=== PATIENT | male | born 1970 | race African-American/Black ===

== ENCOUNTER 2025-06-12 18:52 | Inpatient (IN) | payer OTHER ==
[~2025-06-12] VITALS: Ht 172.7 cm; Wt 71.7 kg
[2025-06-12] MEDS: NITROGLYCERIN 50MG PREMIX 250 ML IV ONE (19:00)
[2025-06-12 19:04] VITALS: O2SAT 98
[2025-06-12 19:07] VITALS: RESP 18
[2025-06-12] MEDS: DEXAMETHASONE 10 MG/ML VIAL IV ONE (19:11)
[2025-06-12] MEDS: NITROGLYCERIN OINT 1GM/INCH UDPKT TD ONE (19:11)
[2025-06-12 19:22] LABS: BASOPHILS % 1.0 % (0.0-2.0); EOSINOPHILS % 1.7 % (0.0-5.0); HEMATOCRIT. 44.8 % (42.0-52.0); HEMOGLOBIN. 14.0 g/dL (14.0-18.0); LYMPHOCYTES % 53.7 % (20.0-50.0); MEAN PLATELET VOLUME 8.5 fl (7.4-10.4); MONOCYTES % 6.3 % (2.0-8.0); NEUTROPHILS % 37.3 % (40.0-76.0); PLATELET 237 x1000/uL (130-400); RED BLOOD CELL COUNT 5.13 mill/uL (4.7-6.1); RED CELL DISTRIBUTION WIDTH 19.2 % (11.6-14.6)
[2025-06-12 19:36] LABS: CREATININE 0.8 mg/dL (0.6-1.3); UREA NITROGEN BLOOD 12 mg/dL (9-23)
[2025-06-12 19:37] LABS: TROPONIN I HIGH SENSITIVITY 4 ng/L (3.0-53)
[2025-06-12] MEDS: IPRATROPIUM BROMIDE (0.02%) 0.5MG/2.5ML NEB HHN SCH (19:46)
[2025-06-12] MEDS: ALBUTEROL (0.083%) 2.5MG/3ML NEB HHN SCH (19:47)
[2025-06-12] MEDS: DIPHENHYDRAMINE 50MG/ML VIAL IV ONE (19:50)
[2025-06-12 19:52] VITALS: RESP 18
[2025-06-12] MEDS: KCL 10MEQ/50ML PREMIX 50 ML IV SCH (19:57)
[2025-06-12 20:21] LABS: BG BASE EXCESS -2.4 mmol/L (-2.0-3.0); BG CARBOXYHEMOGLOBIN 1.8 % (0.5-1.5); BG DEOXYHEMOGLOBIN 1.1 % (0.0-5.0); BG FRACTION INSPIRED OXYGEN 50; BG HCO3 ACT 23.3 mmol/L (21.0-28.0); BG METHEMOGLOBIN 0.3 % (0.5-1.5); BG OXYGEN SATURATION 98.9 % (94.0-98.0); BG OXYHEMOGLOBIN 96.8 % (94.0-98.0); BG PCO2 43.5 mmHg (35.0-48.0); BG PH 7.347 (7.350-7.450); BG PO2 140.2 mmHg (83.0-108.0); BG SAMPLE SITE RIGHT RADIAL; BG TOTAL HEMOGLOBIN 15.1 g/dL (13.5-17.5); BG VENT MODE MASK - BIPAP
[2025-06-12 22:03] LABS: TROPONIN I HIGH SENSITIVITY 12 ng/L (3.0-53)
[2025-06-13] MEDS ORDERED: ACETAMINOPHEN 325MG TABLET PO PRN ×2 (00:15)
[2025-06-13] MEDS ORDERED: ONDANSETRON HCL 4MG/2ML INJ IV PRN (00:15)
[2025-06-13] MEDS ORDERED: IPRATROPIUM/ALBUTEROL 0.5-3(2.5)MG/3ML NEB HHN PRN (00:15)
[2025-06-13 01:45] LABS: TROPONIN I HIGH SENSITIVITY 13 ng/L (3.0-53)
[2025-06-13 08:00] VITALS: BP 146/96; PULSE 65; RESP 11; TEMP 36.7; O2SAT 99
[2025-06-13] MEDS: ENOXAPARIN 40MG/0.4ML SYR SUBCUT SCH (09:09)
[2025-06-13 09:11] VITALS: BP 141/95; PULSE 60; RESP 14; TEMP 36.696; TEMP 36.6960
[2025-06-13 10:00] VITALS: BP 142/98; PULSE 69; RESP 12; O2SAT 98
[2025-06-13 11:12] LABS: BASOPHILS % 0.1 % (0.0-2.0); EOSINOPHILS % 0.0 % (0.0-5.0); HEMATOCRIT. 42.4 % (42.0-52.0); HEMOGLOBIN. 13.5 g/dL (14.0-18.0); LYMPHOCYTES % 9.1 % (20.0-50.0); MEAN PLATELET VOLUME 9.1 fl (7.4-10.4); MONOCYTES % 2.7 % (2.0-8.0); NEUTROPHILS % 88.1 % (40.0-76.0); PLATELET 223 x1000/uL (130-400); RED BLOOD CELL COUNT 4.92 mill/uL (4.7-6.1); RED CELL DISTRIBUTION WIDTH 19.0 % (11.6-14.6)
[2025-06-13 11:24] LABS: CREATININE 0.7 mg/dL (0.6-1.3)
[2025-06-13 11:25] LABS: UREA NITROGEN BLOOD 9 mg/dL (9-23)
[2025-06-13 11:27] LABS: PHOSPHORUS 3.5 mg/dL (2.5-4.9)
== END 2025-06-13 12:10 | disposition left against medical advice (07) | DRG 193 ==
LOC: ER 18:52 → 5EST 22:39 → EDBEDREQ 22:43 → EDBEDREQTM 22:43 → EDBEDREQSVC 22:43 → ENRESERV 06-13 06:21
PROVIDERS: ADMIT Student in an Organized Health Care Education/Training Program; ATTEND Student in an Organized Health Care Education/Training Program
PROC: 5A09357 Assistance with Respiratory Ventilation, Less than 24 Consecutive Hours, Continuous Positive Airway Pressure (ICD-10-PCS; principal; 2025-06-12)
DX: J12.9 Viral pneumonia, unspecified (principal); J96.01 Acute respiratory failure with hypoxia; E87.29 Other acidosis; E87.6 Hypokalemia; F17.210 Nicotine dependence, cigarettes, uncomplicated; I10 Essential (primary) hypertension; Z79.899 Other long term (current) drug therapy; Z53.29 Procedure and treatment not carried out because of patient's decision for other reasons
CPT/HCPCS: 36415; 36600; 71045; 71275; 80048; 82375; 82805; 83735; 83880; 84100; 84484; 85025; 94660; 96374; 96375; 99291; J1100; J1200; J1650; J3480; J3490